=== PATIENT | male | born 2005 | race Caucasian/White ===

== ENCOUNTER 2025-03-01 16:44 | Emergency (ER) | payer SELFPAY ==
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
[2025-03-01 17:04] VITALS: BP 140/71; BP 152/96; PULSE 101; PULSE 94; RESP 18; TEMP 37.1; O2SAT 98; O2SAT 99; BMI 18.5
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
--- OUTSIDE RECORDS SUMMARY | 2025-03-01 18:03 | XMS_ITS | Clinical Summary ---
Author Organization [facility]: [facility] Address [address] [address] Care Team Providers Care Store Stock Help Name Role Phone Tara Baca DO Primary Care Provider [phone] Allergies Active Allergy Reactions Criticality Noted Date Comments Cats Itching 07/23/2015 Itching and wheezing, needs inhaler Medications Acetaminophen (TYLENOL CHILDRENS PO) Take by mouth. A ctive albuterol sulfate HFA 108 (90 BASE) MCG/ACT Inhalation Aero Soln 2-4 Puffs EVERY 4 TO 6 HOURS NEEDED for Shortness of Breath/Cough/W heeze. 6 Active Active Problems No known active problems Immunizations Immunization Administration Dates Next Due DTP 07/08/2007 Fluzone Vaccine 07/08/2007 HIB (Acthib,Hiberix,Omnihib) 07/08/2007 Hepatitis A (pedi/adol) 07/08/2007 Pneumococcal Conjugate - PCV7 07/08/2007 Polio - IPV 07/08/2007 Family History Medical History Relation Comments DERMATOLOGY PROBLEMS (OTHER) Sister ecz moses Neurologic Problems (other) Sister seiz ure x one Relation Status Comments Brother Alive Father Alive Maternal Grandfather Alive Maternal Grandmother Alive Mother Alive Paternal Grandfather Alive Paternal Grandmother Alive Sister Alive Social History Tobacco Use Types Packs/Day Years Used Date Smoking Tobacco: Never Smokeless Tobacco: Never Alcohol Use Standard Drinks/Week Comments No 0 (1 standard drink = 0.6 oz pur e alcohol) Sex and Gender Information Value Date Recorded Sex Assigned at Not on file Legal Sex Male 10:31 AM EST Gender Identity Not on file Sexual Orientation Not on file Last Filed Vital Signs Vital Sign Reading Time Taken Comments Blood Pressure - - Pulse 65 01/27/2018 11:33 AM EDT Temperature 36.9 C (98.5 F) 01/27/2018 11:33 AM EDT Respiratory Rate 20 01/27/2018 11:33 AM EDT Oxygen Saturation 100% 01/27/2018 11:33 AM EDT Inhaled Oxygen Concentration - - Weight 35 kg (77 lb 2.6 oz) 01/27/2018 11:33 AM EDT Height 140 cm (4' 7.12 ) 07/23/2015 8:51 AM EST Body Mass Index - - Plan of Treatment Not on file Insurance MEDICAID [employer] [employer] MED[place] Care Teams Store Stock Help Relationship Specialty Start Date End Date Tara Baca DO [facility] [address] [place] [id number] PCP - General Pediatrics 07/19/15
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
[2025-03-01 20:46] VITALS: BP 140/71; PULSE 94; RESP 18; TEMP 37.1; O2SAT 99
== END 2025-03-01 20:46 | disposition home or self-care (01) ==
PROVIDERS: Emergency Provider Student in an Organized Health Care Education/Training Program
DX: S00.81XA Abrasion of other part of head, initial encounter (principal); M25.562 Pain in left knee; M54.2 Cervicalgia; R51.9 Headache, unspecified; V43.52XA Car driver injured in collision with other type car in traffic accident, initial encounter; Y93.9 Activity, unspecified; Y92.410 Unspecified street and highway as the place of occurrence of the external cause; Y99.8 Other external cause status
CPT/HCPCS: 70450; 70486; 72125; 73564; 99282; 99284

== ENCOUNTER → 2025-03-01 17:28 | Outpatient (BNV) | payer SELFPAY | PROVIDERS: Emergency Provider Student in an Organized Health Care Education/Training Program; Visit Provider Radiology Diagnostic Radiology | DX: Z04.3 Encounter for examination and observation following other accident (principal); R51.9 Headache, unspecified; M25.562 Pain in left knee; V43.52XA Car driver injured in collision with other type car in traffic accident, initial encounter | CPT/HCPCS: 70450; 70486; 72125; 73564 ==